=== PATIENT | male | born 1970 | race Caucasian/White ===

== ENCOUNTER 2018-11-13 19:46 | Inpatient (IN) | payer OTHER, SELFPAY ==
[2018-11-13 19:49] VITALS: BP 144/91; PULSE 98; RESP 18; TEMP 37.1; O2SAT 104; BMI 30.8
--- NOTE | 2018-11-13 20:20 | ED.URI ---
HPI - URI/Sore Throat <Salome Long PA-C - Last Filed: 11/13/18 23:16> General Chief Complaint: Upper Respiratory Symptoms Stated Complaint: UNABLE TO SWALLOW Time Seen by Provider: 11/13/18 20:19 Source: patient Mode of arrival: ambulatory Limitations: no limitations History of Present Illness HPI Narrative: This 48-year-old gentleman comes in due to feeling like he has esophageal obstruction. He states that at work last night he had a little cough and nasal drainage feeling like he was getting a cold. He took some decongestant and cough medicine and states this helps, still feels like he has postnasal drip. He states that he has not had any fever, chills, sweats. he states that he ate normally last night and felt fine, however since 3:00 a.m. he states he has not been able to keep down any fluids and has not been able to try food. He states that he has tried to drink several times and ends up either hacking or retching up the fluid or spitting it out because it feels like it gets stuck high up in his chest. He states he does not have any known history of stricture or obstruction. He does not feel short of breath. He does not have chest pain. He states that he has had times where he feels like he has had food such as meat sticking, but always able to relieve that, and he does not feel like anything got stuck in his throat prior to onset of this. He denies any other complaints on systems review, denies chronic medical problem Related Data Home Medications Medication Instructions Recorded Confirmed No Known Home Medications 11/13/18 11/13/18 Allergies Allergy/AdvReac Type Severity Reaction Status Date / Time No Known Drug Allergies Allergy Verified 11/13/18 19:55 Review of Systems <Salome Long PA-C - Last Filed: 11/13/18 23:16> Review of Systems ROS Unobtainable: All systems reviewed & are unremarkable except as noted in HPI and below PFSH <Salome Long PA-C - Last Filed: 11/13/18 23:16> Medical History (Updated 11/13/18 @ 22:56 by Salome Long PA-C) No chronic problems (Chronic) Surgical History (Updated 11/13/18 @ 20:44 by Salome Long PA-C) No history of previous surgery (Chronic) Social History household members: spouse and children Smoking Status: Never smoker Social History household members: spouse and children Smoking Status: Never smoker Exam <Salome Long PA-C - Last Filed: 11/13/18 23:16> Narrative Exam Narrative: GENERAL APPEARANCE: Patient sitting comfortably, in no distress. EYES: PERRL, EOMI ORAL CAVITY: Normal oropharynx. THROAT: Clear. NECK/THYROID: Neck supple, full range of motion, no cervical lymphadenopathy, trachea midline with normal swallow. LUNGS: Clear to auscultation bilaterally, no cough on exam. HEART: RRR without murmur, nl S1, S2, no S3 or S4. Initial Vital Signs Initial Vital Signs: Vital Signs Temperature 98.8 F 11/13/18 19:49 Pulse Rate 98 H 11/13/18 19:49 Respiratory Rate 18 11/13/18 19:49 Blood Pressure 144/91 H 11/13/18 19:49 Pulse Oximetry 104 H 11/13/18 19:49 <Naomy Valero DO - Last Filed: 11/14/18 02:05> Initial Vital Signs Initial Vital Signs: Vital Signs Temperature 98.8 F 11/13/18 19:49 Pulse Rate 98 H 11/13/18 19:49 Respiratory Rate 18 11/13/18 19:49 Blood Pressure 144/91 H 11/13/18 19:49 Pulse Oximetry 104 H 11/13/18 19:49 Course <Salome Long PA-C - Last Filed: 11/13/18 23:16> Additional Information: Patient reported improvement in discomfort and postnasal drip with Benadryl, also received a dose of Protonix. He has been given IV fluids. Initially plan was to do endoscopy as outpatient tomorrow, however prior to discharge seen again with Dr. Valero and he is unable to keep down a swallow of water, eventually retching this up. I spoke with Dr. Harvey on-call for surgery who is agreeable with admit to his service and planned for endoscopy and dilatation if needed/accessible tomorrow. Basic lab work ordered. Patient is not currently having any pain, orders written for Zofran and additional dose of Benadryl this evening if needed for postnasal drip which has been causing discomfort. Orders Ordered: ED Orders 11/13/18 20:31 XR chest 2V Stat 11/14/18 00:10 Complete Blood Count AUTO DIFF Stat Comprehensive Metabolic Panel Stat Diphenhydramine HCl (Benadryl) 25 mg IV Q6HR PRN PRN Reason: post nasal drip/cough Sodium Chloride (Normal Saline 0.9%) 1,000 mls @ 100 mls/hr IV CONT PADMINI Last Admin: 11/14/18 01:03 Dose: 100 mls/hr Ondansetron HCl (Zofran) 4 mg IV Q4HR PRN PRN Reason: Nausea And Vomiting Discontinued Medications Diphenhydramine HCl (Benadryl) 25 mg IV NOW ONE Stop: 11/13/18 21:42 Last Admin: 11/13/18 21:56 Dose: 25 mg Glucagon (Glucagen) 1 mg IV NOW ONE Stop: 11/13/18 20:47 Last Admin: 11/13/18 21:16 Dose: 1 mg Sodium Chloride (Normal Saline 0.9%) 1,000 mls @ 1,000 mls/hr IV BOLUS ONE Stop: 11/13/18 22:23 Last Infusion: 11/13/18 23:44 Dose: 0 mls/hr Admin: 11/13/18 21:34 Dose: 1,000 mls/hr Pantoprazole Sodium (Protonix) 40 mg IV NOW ONE Stop: 11/13/18 21:36 Last Admin: 11/13/18 21:56 Dose: 40 mg Vital Signs - 8 hr 11/13/18 19:49 11/13/18 22:10 11/13/18 23:43 Temperature 98.8 F Pulse Rate 98 H 88 78 Respiratory Rate 18 19 14 Blood Pressure 144/91 H 136/80 Blood Pressure [Left Arm] 140/81 Pulse Oximetry 104 H 98 96 11/14/18 00:16 Temperature 98.1 F Pulse Rate 84 Respiratory Rate 16 Blood Pressure 143/95 H Blood Pressure [Left Arm] Pulse Oximetry 98 <Naomy Valero DO - Last Filed: 11/14/18 02:05> Orders Ordered: ED Orders 11/13/18 20:31 XR chest 2V Stat 11/14/18 00:10 Complete Blood Count AUTO DIFF Stat Comprehensive Metabolic Panel Stat Diphenhydramine HCl (Benadryl) 25 mg IV Q6HR PRN PRN Reason: post nasal drip/cough Sodium Chloride (Normal Saline 0.9%) 1,000 mls @ 100 mls/hr IV CONT PADMINI Last Admin: 11/14/18 01:03 Dose: 100 mls/hr Ondansetron HCl (Zofran) 4 mg IV Q4HR PRN PRN Reason: Nausea And Vomiting Discontinued Medications Diphenhydramine HCl (Benadryl) 25 mg IV NOW ONE Stop: 11/13/18 21:42 Last Admin: 11/13/18 21:56 Dose: 25 mg Glucagon (Glucagen) 1 mg IV NOW ONE Stop: 11/13/18 20:47 Last Admin: 11/13/18 21:16 Dose: 1 mg Sodium Chloride (Normal Saline 0.9%) 1,000 mls @ 1,000 mls/hr IV BOLUS ONE Stop: 11/13/18 22:23 Last Infusion: 11/13/18 23:44 Dose: 0 mls/hr Admin: 11/13/18 21:34 Dose: 1,000 mls/hr Pantoprazole Sodium (Protonix) 40 mg IV NOW ONE Stop: 11/13/18 21:36 Last Admin: 11/13/18 21:56 Dose: 40 mg Vital Signs - 8 hr 11/13/18 19:49 11/13/18 22:10 11/13/18 23:43 Temperature 98.8 F Pulse Rate 98 H 88 78 Respiratory Rate 18 19 14 Blood Pressure 144/91 H 136/80 Blood Pressure [Left Arm] 140/81 Pulse Oximetry 104 H 98 96 11/14/18 00:16 Temperature 98.1 F Pulse Rate 84 Respiratory Rate 16 Blood Pressure 143/95 H Blood Pressure [Left Arm] Pulse Oximetry 98 MDM - URI/Sore Throat <Salome Long PA-C - Last Filed: 11/13/18 23:16> Lab Data Result diagrams: 11/13/18 23:25 11/13/18 23:25 Lab Results 11/13/18 11/13/18 Range/Units 23:25 23:25 WBC 8.2 (4.5-11.0) X10^3/uL RBC 4.14 L (4.5-5.9) X10^6/uL Hgb 13.9 (13.5-17.5) g/dL Hct 40.5 L (41-53) % MCV 97.7 (80-100) fL MCH 33.6 (26-34) PG MCHC 34.4 (30-36) % RDW 12.9 (11.6-14.8) % Plt Count 214 (150-400) X10^3/uL Neut % (Auto) 75.8 H (50-75) % Lymph % (Auto) 12.7 L (25-40) % [place] % (Auto) 7.3 (3-14) % Eos % (Auto) 3.9 (2-4) % Baso % (Auto) 0.3 (0-2) % Neut # (Auto) 6300 (9432-0659) /uL Lymph # (Auto) 1000 L (6276-8021) /uL [place] # (Auto) 600 (0-900) /uL Eos # (Auto) 300 (0-450) /uL Baso # (Auto) 0 (0-100) /uL Sodium 143 (137-145) mmol/L Potassium 3.7 (3.4-5.1) mmol/L Chloride 108 H (98-107) mmol/L Carbon Dioxide 24 (22-32) mmol/L BUN 16 (9-20) mg/dL Creatinine 1.10 (0.66-1.25) mg/dL Estimated GFR > 60.0 (>60) mL/min BUN/Creatinine Ratio 14.5 (6-22) Glucose 94 (70-100) mg/dL Calcium 8.7 (8.4-10.2) mg/dL Total Bilirubin 0.8 (0.2-1.3) mg/dL AST 35 (17-59) IU/L ALT 49 (21-72) IU/L Alkaline Phosphatase 55 (38-126) U/L Total Protein 7.1 (6.3-8.2) g/dL Albumin 4.2 (3.5-5.0) g/dL Globulin 2.9 (1.7-4.1) g/dL Albumin/Globulin Ratio 1.4 (1.0-2.8) Imaging Data Chest x-ray: Radiologist's impression: [address] [address] XRay Report Signed Patient: Sebastian De La Cruz AMR#: [id number] : 1970Acct:[id number] Age/Sex: 48 / MDate of Service: 11/13/18 Loc: ED Accession Number: [id number] Procedure: XR chest 2V Ordering Provider: Salome Long P.A-C PROCEDURE: XR CHEST 2V INDICATIONS: cough, unable to swallow TECHNIQUE: 2 views of the chest were acquired. COMPARISON: None. FINDINGS: Surgical changes and devices: None. Lungs and pleura: Lungs are clear. No pleural effusions or pneumothorax. Mediastinum: Mediastinal contours are normal. Heart size is normal. Bones and chest wall: No suspicious bony abnormalities. Soft tissues appear unremarkable. IMPRESSION: 1. No acute cardiopulmonary disease. Dictated by: Ciro Calix M.D. on 11/13/2018 at 21:22 Approved by: Ciro Calix M.D. on 11/13/2018 at 21:22 <Naomy Valero DO - Last Filed: 11/14/18 02:05> Lab Data Attestation: I reviewed the patient's lab results. Lab Results 11/13/18 11/13/18 Range/Units 23:25 23:25 WBC 8.2 (4.5-11.0) X10^3/uL RBC 4.14 L (4.5-5.9) X10^6/uL Hgb 13.9 (13.5-17.5) g/dL Hct 40.5 L (41-53) % MCV 97.7 (80-100) fL MCH 33.6 (26-34) PG MCHC 34.4 (30-36) % RDW 12.9 (11.6-14.8) % Plt Count 214 (150-400) X10^3/uL Neut % (Auto) 75.8 H (50-75) % Lymph % (Auto) 12.7 L (25-40) % [place] % (Auto) 7.3 (3-14) % Eos % (Auto) 3.9 (2-4) % Baso % (Auto) 0.3 (0-2) % Neut # (Auto) 6300 (1822-4625) /uL Lymph # (Auto) 1000 L (2661-7814) /uL [place] # (Auto) 600 (0-900) /uL Eos # (Auto) 300 (0-450) /uL Baso # (Auto) 0 (0-100) /uL Sodium 143 (137-145) mmol/L Potassium 3.7 (3.4-5.1) mmol/L Chloride 108 H (98-107) mmol/L Carbon Dioxide 24 (22-32) mmol/L BUN 16 (9-20) mg/dL Creatinine 1.10 (0.66-1.25) mg/dL Estimated GFR > 60.0 (>60) mL/min BUN/Creatinine Ratio 14.5 (6-22) Glucose 94 (70-100) mg/dL Calcium 8.7 (8.4-10.2) mg/dL Total Bilirubin 0.8 (0.2-1.3) mg/dL AST 35 (17-59) IU/L ALT 49 (21-72) IU/L Alkaline Phosphatase 55 (38-126) U/L Total Protein 7.1 (6.3-8.2) g/dL Albumin 4.2 (3.5-5.0) g/dL Globulin 2.9 (1.7-4.1) g/dL Albumin/Globulin Ratio 1.4 (1.0-2.8) MDM Narrative Medical decision making narrative: I saw evaluated patient myself. He really appears comfortable maintaining his airway however is not able to swallow. I had him swallow water in front of me did go down some however of within under a minute it was all back up. He has been spitting into a bag, he states he waits until his secretions all pool on off so that he can spit. At this time it does not sound as though anything is actually stuck in his throat. Possible esophageal stricture. At this time he is unable to manage his secretions or tolerate oral fluids he cannot be sent home. Salome call Dr. Medel surgery back who agrees with observation and EGD tomorrow Discharge Plan Departure Patient Disposition: Admitted as Observation Clinical Impression: Difficulty clearing secretions Dysphagia Qualifiers: Dysphagia type: unspecified Qualified Code(s): R13.10 - Dysphagia, unspecified Discharge Date/Time: 11/14/18 00:05 Interventions: ED Discharge Assessment Last Done: 11/13/18 23:43 Admit Date/Time: 11/13/18 23:04 Admit Provider: Jv Harvey <Naomy Valero DO - Last Filed: 11/14/18 02:05> Cosign ED Attending Manoj Attestation: I was immediately available in the department for consultation. Documentation has been reviewed. I agree with assessment and plan.
--- NOTE | 2018-11-13 20:31 | DI.RAD.S_ITS ---
PROCEDURE: XR CHEST 2V INDICATIONS: cough, unable to swallow TECHNIQUE: 2 views of the chest were acquired. COMPARISON: None. FINDINGS: Surgical changes and devices: None. Lungs and pleura: Lungs are clear. No pleural effusions or pneumothorax. Mediastinum: Mediastinal contours are normal. Heart size is normal. Bones and chest wall: No suspicious bony abnormalities. Soft tissues appear unremarkable. IMPRESSION: 1. No acute cardiopulmonary disease. Dictated by: Ciro Calix M.D. on 11/13/2018 at 21:22 Approved by: Ciro Calix M.D. on 11/13/2018 at 21:22
--- NOTE | 2018-11-13 20:38 | ED_ITS ---
HPI - URI/Sore Throat <Salome Long PA-C - Last Filed: 11/13/18 23:16> General Chief Complaint: Upper Respiratory Symptoms Stated Complaint: UNABLE TO SWALLOW Time Seen by Provider: 11/13/18 20:19 Source: patient Mode of arrival: ambulatory Limitations: no limitations History of Present Illness HPI Narrative: This 48-year-old gentleman comes in due to feeling like he has esophageal obstruction. He states that at work last night he had a little cough and nasal drainage feeling like he was getting a cold. He took some decongestant and cough medicine and states this helps, still feels like he has postnasal drip. He states that he has not had any fever, chills, sweats. he states that he ate normally last night and felt fine, however since 3:00 a.m. he states he has not been able to keep down any fluids and has not been able to try food. He states that he has tried to drink several times and ends up either hacking or retching up the fluid or spitting it out because it feels like it gets stuck high up in his chest. He states he does not have any known history of stricture or obstruction. He does not feel short of breath. He does not have chest pain. He states that he has had times where he feels like he has had food such as meat sticking, but always able to relieve that, and he does not feel like anything got stuck in his throat prior to onset of this. He denies any other complaints on systems review, denies chronic medical problem Related Data Home Medications Medication Instructions Recorded Confirmed No Known Home Medications 11/13/18 11/13/18 Allergies Allergy/AdvReac Type Severity Reaction Status Date / Time No Known Drug Allergies Allergy Verified 11/13/18 19:55 Review of Systems <Salome Long PA-C - Last Filed: 11/13/18 23:16> Review of Systems ROS Unobtainable: All systems reviewed & are unremarkable except as noted in HPI and below PFSH <Salome Long PA-C - Last Filed: 11/13/18 23:16> Medical History (Updated 11/13/18 @ 22:56 by Salome Long PA-C) No chronic problems (Chronic) Surgical History (Updated 11/13/18 @ 20:44 by Salome Long PA-C) No history of previous surgery (Chronic) Social History household members: spouse and children Smoking Status: Never smoker Social History household members: spouse and children Smoking Status: Never smoker Exam <Salome Long PA-C - Last Filed: 11/13/18 23:16> Narrative Exam Narrative: GENERAL APPEARANCE: Patient sitting comfortably, in no distress. EYES: PERRL, EOMI ORAL CAVITY: Normal oropharynx. THROAT: Clear. NECK/THYROID: Neck supple, full range of motion, no cervical lymphadenopathy, trachea midline with normal swallow. LUNGS: Clear to auscultation bilaterally, no cough on exam. HEART: RRR without murmur, nl S1, S2, no S3 or S4. Initial Vital Signs Initial Vital Signs: Vital Signs Temperature 98.8 F 11/13/18 19:49 Pulse Rate 98 H 11/13/18 19:49 Respiratory Rate 18 11/13/18 19:49 Blood Pressure 144/91 H 11/13/18 19:49 Pulse Oximetry 104 H 11/13/18 19:49 <Naomy Valero DO - Last Filed: 11/14/18 02:05> Initial Vital Signs Initial Vital Signs: Vital Signs Temperature 98.8 F 11/13/18 19:49 Pulse Rate 98 H 11/13/18 19:49 Respiratory Rate 18 11/13/18 19:49 Blood Pressure 144/91 H 11/13/18 19:49 Pulse Oximetry 104 H 11/13/18 19:49 Course <Salome Long PA-C - Last Filed: 11/13/18 23:16> Additional Information: Patient reported improvement in discomfort and postnasal drip with Benadryl, also received a dose of Protonix. He has been given IV fluids. Initially plan was to do endoscopy as outpatient tomorrow, however prior to discharge seen again with Dr. Valero and he is unable to keep down a swallow of water, eventually retching this up. I spoke with Dr. Harvey on-call for surgery who is agreeable with admit to his service and planned for endoscopy and dilatation if needed/accessible tomorrow. Basic lab work ordered. Patient is not currently having any pain, orders written for Zofran and additional dose of Benadryl this evening if needed for postnasal drip which has been causing discomfort. Orders Ordered: ED Orders 11/13/18 20:31 XR chest 2V Stat 11/14/18 00:10 Complete Blood Count AUTO DIFF Stat Comprehensive Metabolic Panel Stat Diphenhydramine HCl (Benadryl) 25 mg IV Q6HR PRN PRN Reason: post nasal drip/cough Sodium Chloride (Normal Saline 0.9%) 1,000 mls @ 100 mls/hr IV CONT PADMINI Last Admin: 11/14/18 01:03 Dose: 100 mls/hr Ondansetron HCl (Zofran) 4 mg IV Q4HR PRN PRN Reason: Nausea And Vomiting Discontinued Medications Diphenhydramine HCl (Benadryl) 25 mg IV NOW ONE Stop: 11/13/18 21:42 Last Admin: 11/13/18 21:56 Dose: 25 mg Glucagon (Glucagen) 1 mg IV NOW ONE Stop: 11/13/18 20:47 Last Admin: 11/13/18 21:16 Dose: 1 mg Sodium Chloride (Normal Saline 0.9%) 1,000 mls @ 1,000 mls/hr IV BOLUS ONE Stop: 11/13/18 22:23 Last Infusion: 11/13/18 23:44 Dose: 0 mls/hr Admin: 11/13/18 21:34 Dose: 1,000 mls/hr Pantoprazole Sodium (Protonix) 40 mg IV NOW ONE Stop: 11/13/18 21:36 Last Admin: 11/13/18 21:56 Dose: 40 mg Vital Signs - 8 hr 11/13/18 19:49 11/13/18 22:10 11/13/18 23:43 Temperature 98.8 F Pulse Rate 98 H 88 78 Respiratory Rate 18 19 14 Blood Pressure 144/91 H 136/80 Blood Pressure [Left Arm] 140/81 Pulse Oximetry 104 H 98 96 11/14/18 00:16 Temperature 98.1 F Pulse Rate 84 Respiratory Rate 16 Blood Pressure 143/95 H Blood Pressure [Left Arm] Pulse Oximetry 98 <Naomy Valero DO - Last Filed: 11/14/18 02:05> Orders Ordered: ED Orders 11/13/18 20:31 XR chest 2V Stat 11/14/18 00:10 Complete Blood Count AUTO DIFF Stat Comprehensive Metabolic Panel Stat Diphenhydramine HCl (Benadryl) 25 mg IV Q6HR PRN PRN Reason: post nasal drip/cough Sodium Chloride (Normal Saline 0.9%) 1,000 mls @ 100 mls/hr IV CONT PADMINI Last Admin: 11/14/18 01:03 Dose: 100 mls/hr Ondansetron HCl (Zofran) 4 mg IV Q4HR PRN PRN Reason: Nausea And Vomiting Discontinued Medications Diphenhydramine HCl (Benadryl) 25 mg IV NOW ONE Stop: 11/13/18 21:42 Last Admin: 11/13/18 21:56 Dose: 25 mg Glucagon (Glucagen) 1 mg IV NOW ONE Stop: 11/13/18 20:47 Last Admin: 11/13/18 21:16 Dose: 1 mg Sodium Chloride (Normal Saline 0.9%) 1,000 mls @ 1,000 mls/hr IV BOLUS ONE Stop: 11/13/18 22:23 Last Infusion: 11/13/18 23:44 Dose: 0 mls/hr Admin: 11/13/18 21:34 Dose: 1,000 mls/hr Pantoprazole Sodium (Protonix) 40 mg IV NOW ONE Stop: 11/13/18 21:36 Last Admin: 11/13/18 21:56 Dose: 40 mg Vital Signs - 8 hr 11/13/18 19:49 11/13/18 22:10 11/13/18 23:43 Temperature 98.8 F Pulse Rate 98 H 88 78 Respiratory Rate 18 19 14 Blood Pressure 144/91 H 136/80 Blood Pressure [Left Arm] 140/81 Pulse Oximetry 104 H 98 96 11/14/18 00:16 Temperature 98.1 F Pulse Rate 84 Respiratory Rate 16 Blood Pressure 143/95 H Blood Pressure [Left Arm] Pulse Oximetry 98 MDM - URI/Sore Throat <Salome Long PA-C - Last Filed: 11/13/18 23:16> Lab Data Result diagrams: 11/13/18 23:25 11/13/18 23:25 Lab Results 11/13/18 11/13/18 Range/Units 23:25 23:25 WBC 8.2 (4.5-11.0) X10^3/uL RBC 4.14 L (4.5-5.9) X10^6/uL Hgb 13.9 (13.5-17.5) g/dL Hct 40.5 L (41-53) % MCV 97.7 (80-100) fL MCH 33.6 (26-34) PG MCHC 34.4 (30-36) % RDW 12.9 (11.6-14.8) % Plt Count 214 (150-400) X10^3/uL Neut % (Auto) 75.8 H (50-75) % Lymph % (Auto) 12.7 L (25-40) % [place] % (Auto) 7.3 (3-14) % Eos % (Auto) 3.9 (2-4) % Baso % (Auto) 0.3 (0-2) % Neut # (Auto) 6300 (3924-9384) /uL Lymph # (Auto) 1000 L (4705-8998) /uL [place] # (Auto) 600 (0-900) /uL Eos # (Auto) 300 (0-450) /uL Baso # (Auto) 0 (0-100) /uL Sodium 143 (137-145) mmol/L Potassium 3.7 (3.4-5.1) mmol/L Chloride 108 H (98-107) mmol/L Carbon Dioxide 24 (22-32) mmol/L BUN 16 (9-20) mg/dL Creatinine 1.10 (0.66-1.25) mg/dL Estimated GFR > 60.0 (>60) mL/min BUN/Creatinine Ratio 14.5 (6-22) Glucose 94 (70-100) mg/dL Calcium 8.7 (8.4-10.2) mg/dL Total Bilirubin 0.8 (0.2-1.3) mg/dL AST 35 (17-59) IU/L ALT 49 (21-72) IU/L Alkaline Phosphatase 55 (38-126) U/L Total Protein 7.1 (6.3-8.2) g/dL Albumin 4.2 (3.5-5.0) g/dL Globulin 2.9 (1.7-4.1) g/dL Albumin/Globulin Ratio 1.4 (1.0-2.8) Imaging Data Chest x-ray: Radiologist's impression: [address] [address] XRay Report Signed Patient: Sebastian De La Cruz AMR#: [id number] : 1970Acct:[id number] Age/Sex: 48 / MDate of Service: 11/13/18 Loc: ED Accession Number: [id number] Procedure: XR chest 2V Ordering Provider: Salome Long P.A-C PROCEDURE: XR CHEST 2V INDICATIONS: cough, unable to swallow TECHNIQUE: 2 views of the chest were acquired. COMPARISON: None. FINDINGS: Surgical changes and devices: None. Lungs and pleura: Lungs are clear. No pleural effusions or pneumothorax. Mediastinum: Mediastinal contours are normal. Heart size is normal. Bones and chest wall: No suspicious bony abnormalities. Soft tissues appear unremarkable. IMPRESSION: 1. No acute cardiopulmonary disease. Dictated by: Ciro Calix M.D. on 11/13/2018 at 21:22 Approved by: Ciro Calix M.D. on 11/13/2018 at 21:22 <Naomy Valero DO - Last Filed: 11/14/18 02:05> Lab Data Attestation: I reviewed the patient's lab results. Lab Results 11/13/18 11/13/18 Range/Units 23:25 23:25 WBC 8.2 (4.5-11.0) X10^3/uL RBC 4.14 L (4.5-5.9) X10^6/uL Hgb 13.9 (13.5-17.5) g/dL Hct 40.5 L (41-53) % MCV 97.7 (80-100) fL MCH 33.6 (26-34) PG MCHC 34.4 (30-36) % RDW 12.9 (11.6-14.8) % Plt Count 214 (150-400) X10^3/uL Neut % (Auto) 75.8 H (50-75) % Lymph % (Auto) 12.7 L (25-40) % [place] % (Auto) 7.3 (3-14) % Eos % (Auto) 3.9 (2-4) % Baso % (Auto) 0.3 (0-2) % Neut # (Auto) 6300 (3263-5438) /uL Lymph # (Auto) 1000 L (7651-8824) /uL [place] # (Auto) 600 (0-900) /uL Eos # (Auto) 300 (0-450) /uL Baso # (Auto) 0 (0-100) /uL Sodium 143 (137-145) mmol/L Potassium 3.7 (3.4-5.1) mmol/L Chloride 108 H (98-107) mmol/L Carbon Dioxide 24 (22-32) mmol/L BUN 16 (9-20) mg/dL Creatinine 1.10 (0.66-1.25) mg/dL Estimated GFR > 60.0 (>60) mL/min BUN/Creatinine Ratio 14.5 (6-22) Glucose 94 (70-100) mg/dL Calcium 8.7 (8.4-10.2) mg/dL Total Bilirubin 0.8 (0.2-1.3) mg/dL AST 35 (17-59) IU/L ALT 49 (21-72) IU/L Alkaline Phosphatase 55 (38-126) U/L Total Protein 7.1 (6.3-8.2) g/dL Albumin 4.2 (3.5-5.0) g/dL Globulin 2.9 (1.7-4.1) g/dL Albumin/Globulin Ratio 1.4 (1.0-2.8) MDM Narrative Medical decision making narrative: I saw evaluated patient myself. He really appears comfortable maintaining his airway however is not able to swallow. I had him swallow water in front of me did go down some however of within under a minute it was all back up. He has been spitting into a bag, he states he waits until his secretions all pool on off so that he can spit. At this time it does not sound as though anything is actually stuck in his throat. Possible esoph ageal stricture. At this time he is unable to manage his secretions or tolerate oral fluids he cannot be sent home. Salome call Dr. Medel surgery back who agrees with observation and EGD tomorrow Discharge Plan Departure Patient Disposition: Admitted as Observation Clinical Impression: Difficulty clearing secretions Dysphagia Qualifiers: Dysphagia type: unspecified Qualified Code(s): R13.10 - Dysphagia, unspecified Discharge Date/Time: 11/14/18 00:05 Interventions: ED Discharge Assessment Last Done: 11/13/18 23:43 Admit Date/Time: 11/13/18 23:04 Admit Provider: Jv Harvey <Naomy Valero DO - Last Filed: 11/14/18 02:05> Cosign ED Attending Manoj Attestation: I was immediately available in the departm ent for consultation. Documentation has been reviewed. I agree with assessment and plan.
[2018-11-13] MEDS: GLUCAGON,HUMAN RECOMBINANT 1 MG/ML VIAL IV (21:16)
--- NOTE | 2018-11-13 21:18 | PC.NURSE ---
pt reports waking up today and not being able to eat or drink, feels like something is stuck in his throat. Pt has a spit cup and is continually spitting into it. Not able to manage secretions.
--- NOTE | 2018-11-13 21:19 | PC.NURSE ---
IV placed, glucagon given followed immediatlly by a warm ron hyun. Pt unable to swallow any gingerale. Provider notified and went to pt room
[2018-11-13] MEDS: SODIUM CHLORIDE 0.9% 1,000 ML 1000 ML IV (21:34)
[2018-11-13] MEDS: diphenhydrAMINE 50 MG/ML VIAL 25 MG IV (21:56)
[2018-11-13] MEDS: PANTOPRAZOLE 40 MG VIAL IV (21:56)
[2018-11-13 22:10] VITALS: BP 140/81; PULSE 88; RESP 19; O2SAT 98
[2018-11-13 23:43] VITALS: BP 136/80; PULSE 78; RESP 14; O2SAT 96
[2018-11-14] VITALS (18 sets, daily range): BP systolic 116–151; BP diastolic 62–96; PULSE 67–90; RESP 12–18; TEMP 36.2–37.1; O2SAT 96–98; BMI 30.8
--- NOTE | 2018-11-14 | PATH_ITS ---
[facility] Accession Number: [id number] . 01 Material submitted: . esophagus, E-G Junction - DISTAL ESOPHAGUS EG JUNCTION . 02 Diagnosis: Distal Esophagus, Esophagogastric Junction, Biopsies: Squamous mucosa with active esophagitis and ulcer, compatible with severe reflux. Negative for fungal organisms on PAS stain. Negative for herpes simplex virus or cytomegalovirus inclusions by immunohistochemistry. Negative for dysplasia or malignancy. [facility]/11/17/2018 . 02 Electronically signed: . Rik Talavera MD, PhD, Pathologist NPI- [id number] . 01 Gross description: . DISTAL ESOPHAGUS EG JUNCTION: Received in formalin are multiple fragment(s) of rosen, soft tissue measuring 0.5 x 0.3 x 0.1 cm in aggregate submitted entirely in 1 cassette(s) /CKI /CKI . 02 Microscopic: . Sections are of ulcerated squamous mucosa. An alcian blue/PAS stain is negative for fungal organisms. Immunohistochemical stains are negative for cytomegalovirus and herpes simplex virus inclusions, respectively. Control stains show appropriate reactivity. . * This test was developed and its performance characteristics determined by [facility]. It has not been cleared or approved by the U.S. Food and Drug Administration. The FDA has determined that such clearance or approval is not necessary. This test is used for clinical purposes. It should not be regarded as investigational or for research. . 02 Pathologist provided ICD-10: K20.9 . 02 CPT . 254753, Y87290, K50557, 076207 Performed at: 01 [facility] [address], [place], [place] [id number] MD Ciro Shelley MD Phone: [phone] Performed at: 02 [facility] [place] [address] [place] [id number] MD Jeannine Silva MD Phone: [phone]
[2018-11-14 00:32] LABS: Add Manual Diff / Slide Review NO; Basophils Absolute Auto 0 /uL (0-100); Basophils Percent Auto 0.3 % (0-2); Eosinophils Absolute Auto 300 /uL (0-450); Eosinophils Percent Auto 3.9 % (2-4); Hematocrit 40.5 % (41-53); Hemoglobin 13.9 g/dL (13.5-17.5); Lymphocytes Absolute Auto 1000 /uL (1100-4500); Lymphocytes Percent Auto 12.7 % (25-40); Mean Corpuscular HGB Conc 34.4 % (30-36); Mean Corpuscular Hemoglobin 33.6 PG (26-34); Mean Corpuscular Volume 97.7 fL (80-100); Monocytes Absolute Auto 600 /uL (0-900); Monocytes Percent Auto 7.3 % (3-14); Neutrophils Absolute Auto 6300 /uL (1500-7000); Neutrophils Percent Auto 75.8 % (50-75); Platelet Count 214 X10^3/uL (150-400); Red Blood Cell Count 4.14 X10^6/uL (4.5-5.9); Red Cell Distribution Width 12.9 % (11.6-14.8); White Blood Cell Count 8.2 X10^3/uL (4.5-11.0)
[2018-11-14 00:38] LABS: Alanine Aminotransferase 49 IU/L (21-72); Albumin 4.2 g/dL (3.5-5.0); Albumin Globulin Ratio 1.4 (1.0-2.8); Alkaline Phosphatase 55 U/L (38-126); Aspartate Aminotransferase 35 IU/L (17-59); BUN Creatinine Ratio 14.5 (6-22); Bilirubin Total 0.8 mg/dL (0.2-1.3); Blood Urea Nitrogen 16 mg/dL (9-20); Calcium 8.7 mg/dL (8.4-10.2); Carbon Dioxide 24 mmol/L (22-32); Chloride 108 mmol/L (98-107); Estimated Glomerular Filt Rate > 60.0 mL/min (>60); Globulin 2.9 g/dL (1.7-4.1); Glucose 94 mg/dL (70-100); HEMOLYSIS < 15 (0-50); Potassium 3.7 mmol/L (3.4-5.1); Sodium 143 mmol/L (137-145); Total Protein 7.1 g/dL (6.3-8.2)
[2018-11-14] MEDS: SODIUM CHLORIDE 0.9% 1,000 ML 100 ML IV ×2 (01:03→10:46)
--- NOTE | 2018-11-14 03:00 | PC.NURSE ---
Addendum entered and electronically signed by Ferdinand Amor R.N. 11/14/18 06:53: Pt has scant ammt. of blood in spit. Original Note: Safe hand off from [place] [facility]. Pt received to floor at 0000, pt was ambulating unassisted to room. Pt denies pain, BP 143/95, P84, 98% on Room Air. Pt LS clear bilaterally, CMS intact. Only complaint is that when he swallows anything it all comes back up again. Pt on NS @ 100mls/hr. Pt was educated about use of the call light. Pt is a stand by assist. Plan for Endoscopy if needed w/ Dr. Harvey today.
[2018-11-14] MEDS: diphenhydrAMINE 50 MG/ML VIAL 25 MG IV (06:29)
--- NOTE | 2018-11-14 10:06 | PM.HP.1 ---
History of Present Illness Date Patient Seen: 11/14/18 Time Patient Seen: 10:06 Chief complaint: UNABLE TO SWALLOW Narrative: Patient has a sudden onset of dysphagia. No prior history of GERD. No history of peptic ulcer disease. No prior history of dysphagia. Patient came to the emergency room where he is unable to swallow water. Is not aware of ingesting any food bolus to cause this problem. Patient History Medical History No chronic problems (Chronic) Surgical History No history of previous surgery (Chronic) Social History household members: spouse and children Smoking Status: Never smoker Family & Social History Social History: household members spouse,children Prior Living Arrangements House Safety & Behavioral: Feels Safe in Current Yes Environment Been Physically Hurt or No Threatened By a Person Suicidal Ideation Description None Suicide Plan Description No Plan Tobacco & Substance use: Smoking Status Never smoker alcohol intake frequency 0-2 drinks per day Substance Use Type does not use Meds Home Medications Medication Instructions Recorded Confirmed Type No Known Home Medications 11/13/18 11/13/18 History Allergies Allergy/AdvReac Type Severity Reaction Status Date / Time No Known Drug Allergies Allergy Verified 11/13/18 19:55 Review of Systems Review of Systems All systems reviewed & are unremarkable except as noted in HPI and below Exam Vital Signs (past 8 hours): - 11/14/18 04:55 11/14/18 08:00 Temperature 97.2 F L 98.1 F Pulse Rate 69 78 Respiratory Rate 16 16 Blood Pressure 134/78 117/80 Pulse Oximetry 97 96 Oxygen Delivery Method Room Air Oxygen Flow Rate 0 Narrative Exam Narrative: Patient is alert and oriented vital signs are stable Neck no adenopathy Lungs clear with no rales or wheezes Heart regular rhythm no murmur Abdomen soft and nontender no masses. Remaining physical unremarkable. Objective Labs Result Diagrams: 11/13/18 23:25 11/13/18 23:25 Labs: Laboratory Results - last 24 hr 11/13/18 11/13/18 23:25 23:25 WBC 8.2 RBC 4.14 L Hgb 13.9 Hct 40.5 L MCV 97.7 MCH 33.6 MCHC 34.4 RDW 12.9 Plt Count 214 Neut % (Auto) 75.8 H Lymph % (Auto) 12.7 L [place] % (Auto) 7.3 Eos % (Auto) 3.9 Baso % (Auto) 0.3 Neut # (Auto) 6300 Lymph # (Auto) 1000 L [place] # (Auto) 600 Eos # (Auto) 300 Baso # (Auto) 0 Sodium 143 Potassium 3.7 Chloride 108 H Carbon Dioxide 24 BUN 16 Creatinine 1.10 Estimated GFR > 60.0 BUN/Creatinine Ratio 14.5 Glucose 94 Calcium 8.7 Total Bilirubin 0.8 AST 35 ALT 49 Alkaline Phosphatase 55 Total Protein 7.1 Albumin 4.2 Globulin 2.9 Albumin/Globulin Ratio 1.4 Assessment & Plan Assessment & Plan narrative: Patient has esophageal obstruction unknown etiology. This could be tumor inflammatory change or a foreign body. I have explained all of this to the patient and his . I have recommended esophago auscultate a possible dilatation. Possible biopsies. I have explained the risks of esophageal perforation with this process. They seemed understand and agree completely with no further questions.
--- NOTE | 2018-11-14 10:42 | CM.DANOTE ---
DCP: Case received, EMR reviewed and met with patient. Introduced self and role. Baseline information regarding patient's health obtained by patient. DCP template was able to be completed with information currently available. Patient is a 48 year old male who admitted yesterday evening to the care of the hospitalist team. PCP: Dr. Sherwood, in [place]. Payer: confirmed: [employer]. Patient came to hospital via family vehicle due to some swallowing issues. He had been unable to swallow water without gagging. Met briefly with patient. Alert and oriented. He is currently employed at [employer]. He is and resides with his , Huyen. He stated, he has been in good health, and he has never had this before. He had been attempting to swallow water when this supportive employment case manager was in room, and he had been gaging. He is to have EGD today, secondary to potential Esophageal Stricture. P: DCP to continue to follow. He will be having test done this afternoon. Emily Zaidi RN/Electronic Induction Hardener
[2018-11-14] MEDS: LACTATED RINGERS 1,000 ML 42 ML IV (14:44)
--- NOTE | 2018-11-14 14:54 | PC.NURSE ---
Dysphagia: Has been NPO for the shift. Awaits EGD. Hopes he may even go home later depending on how the results test and turn up technician. No pain. Keeps HOB up. When he has trouble handling oral secretions he spits into a cup. Awaiting procedure. Cont w/poc.
--- NOTE | 2018-11-14 15:42 | P.OP.ENDO_ITS ---
Operative Date/Time/Diagnoses Date of procedure: 11/14/18 Time of procedure: 15:36 Pre-op diagnosis: Esophageal stricture Post-op diagnosis: same Procedure & Clinicians Study performed: Esophagogastroduodenoscopy esophageal biopsies and esophageal dilatation Same procedure as scheduled: Yes Indications: Patient admitted with severe dysphagia unable to swallow any liquids Surgeon: Jv Harvey Procedure Notes SCOAP/Timeout: Done Procedure in detail: Patient was properly identified during surgical pause he was given general endotracheal anesthesia. The flexible fiberoptic gastroscope inserted transorally from the hypopharynx into the 2nd portion of the duodenum the EG junction was at 38 cm and was involved with a tight inflammatory stricture. The mucosa there was reddened inflamed but did not appear to be maryjane or. This was biopsied in multiple places. The stomach appears normal, the gastric side of the EG junction is also normal numerous photographs were taken. Pyloric channel 1st and 2nd portion of the duodenum were normal. Prior to removing the scope retrograde dilatation was done with graduated balloons starting with 12 mm diameter and finishing with 15 mm diameter balloons. This was well-tolerated with minimal bleeding. the balloons traverse the stricture with relative ease. Scope withdrawal time: Ten Findings: stricture (Esophageal stricture at the EG junction) Specimen(s): other (Esophageal biopsies at stricture) Complications: none Impression: Esophageal stricture presumably inflammatory related to reflux. Recommendations: No ASA/NSAIDS and EGD in 6-8 weeks (If dysphagia persists) Follow up: weeks Disposition: PACU
--- NOTE | 2018-11-14 16:23 | PC.NURSE ---
Returned from OR following dilatation of stricture. Sitting up in bed and sippin on ice water. C/of mild headache and mild sore throat. No other complaints. Spouse in room with pt. Plan to keep pt overnight and probable dc home in am. On full liquid diet for now.
[2018-11-14] MEDS: SUCRALFATE 1 GM/10 ML ORAL SUSP PO ×2 (16:47→21:27)
[2018-11-14] MEDS: PANTOPRAZOLE 40 MG VIAL IV ×2 (16:49→21:33)
[2018-11-15 04:55] VITALS: BP 115/67; PULSE 78; RESP 16; TEMP 37.2; O2SAT 93
[2018-11-15] MEDS: SUCRALFATE 1 GM/10 ML ORAL SUSP PO (06:49)
[2018-11-15 08:03] VITALS: BP 129/75; PULSE 73; RESP 19; TEMP 36.6; O2SAT 95
--- NOTE | 2018-11-15 09:05 | PM.DS.1 ---
History of Present Illness Chief complaint: UNABLE TO SWALLOW Narrative: Patient has a sudden onset of dysphagia. No prior history of GERD. No history of peptic ulcer disease. No prior history of dysphagia. Patient came to the emergency room where he is unable to swallow water. Is not aware of ingesting any food bolus to cause this problem. Discharge Providers Date of admission: 11/13/18 23:04 Discharge Date: 11/15/18 Discharge provider: Jv Harvey MD Summary Discharge Diagnosis: Esophageal stricture probably benign Hospital Course: Patient was admitted with complete esophageal obstruction unable to handle secretions. Was taken to the operating room underwent esophagogastroduodenoscopy and dilation of a distal esophageal stricture which is benign in appearance. This was biopsied. Dilatation was effective. Patient is now tolerating a full liquid diet with no dysphagia drinking well. he has no chest or abdominal pain. he is discharged on Nexium or Prilosec ant acid therapy. Advised to minimize caffeine and alcohol. advised to take medications mentioned for 3-6 months. He will follow up with his private physician. Status at Discharge Cognitive/behavioral status at discharge: oriented Functional status at discharge: independent ambulation Overall status at discharge: patient is back to baseline Time Spent with Patient Less than 30 minutes Exam Vital Signs (past 8 hours): - 11/15/18 04:55 11/15/18 08:03 Temperature 98.9 F 97.9 F Pulse Rate 78 73 Respiratory Rate 16 19 Blood Pressure 115/67 129/75 Pulse Oximetry 93 95 Oxygen Delivery Method Room Air Oxygen Flow Rate 0 Objective Labs Result Diagrams: 11/13/18 23:25 11/13/18 23:25 Discharge Plan Discharge Plan Patient Disposition: Home Discharge Med Rec/Prescriptions Prescriptions: No Action No Known Home Medications RF: 0 Provider Discharge Instructions Diet: Diet as Tolerated Diet comment: minimal caffiene and alcohol Other treatments: nexium 24, tums , zantac as dirtcted Visit Report/Discharge Packet Instructions: DI for Esophageal Stricture, EGD Discharge Instructions Discharge Data Attending Provider: Jv Harvey Admit Date/Time: 11/13/18 23:04
[2018-11-15] MEDS: PANTOPRAZOLE 40 MG VIAL IV (09:07)
--- NOTE | 2018-11-15 10:34 | PC.NURSE ---
Discharge: Pt feels ready to d/c home from hospital. Diet tolerated and reviewed home diet. Reviewed information for eso stricture. Pt reports he understands md instructions for meds at home for gerd, nexium, zantac and tums. Spouse at bedside when instructions given. Questions answered. Pt d/c home via auto.
--- NOTE | 2018-11-15 14:21 | CM.DPNOTE ---
DCP: continued: case received and discussed in Team Rounds. Care team members reported pt had successful esophageal dilatation yesterday and was doing well for d/c today. He left in the morning for home and with PCP followup planned.
== END 2018-11-15 10:30 | disposition home or self-care (01) | DRG 392 ==
LOC: ED 22:56 → AC 11-14 06:51
PROVIDERS: Admitting Provider Surgery; Emergency Provider Internal Medicine; Visit Provider Surgery
PROC: 0DJ08ZZ Inspection of Upper Intestinal Tract, Via Natural or Artificial Opening Endoscopic (ICD-10-PCS; CPT 43235; principal; 2018-11-14 16:30)
DX: K22.2 Esophageal obstruction (principal)
CPT/HCPCS: 43235; 43245; 71046; 80053; 85025; 94762; 96361; 96374; 96375; 99221; 99238; 99283; 99284; C9113; J0330; J1200; J1610; J2405; J2704; J3010